=== PATIENT | male | born 1965 | race African-American/Black ===

== ENCOUNTER 2018-02-13 16:46 | Emergency (ER) | payer OTHER ==
[~2018-02-13] VITALS: Ht 193 cm; Wt 86.2 kg
[~2018-02-13 16:46] MED LIST: ETODOLAC; FIORICET
== END 2018-02-13 21:57 | disposition home or self-care (01) ==
LOC: ER 16:46
DX: K59.09 Other constipation (principal); R10.31 Right lower quadrant pain

== ENCOUNTER 2018-05-24 11:20 | Emergency (ER) | payer OTHER ==
[~2018-05-24] VITALS: Ht 185.4 cm; Wt 108.9 kg
== END 2018-05-24 15:23 | disposition home or self-care (01) ==
LOC: ER 11:20
DX: R42 Dizziness and giddiness (principal)